=== PATIENT | male | born 1995 | race Caucasian/White ===

== ENCOUNTER 2020-10-21 21:11 | Emergency (ER) | payer BC, SELFPAY ==
[2020-10-21 21:20] VITALS: BP 131/73; PULSE 82; RESP 20; TEMP 36.9; O2SAT 98; BMI 24.3
--- NOTE | 2020-10-21 21:22 | XR_ITS ---
PROCEDURE: XR FOOT RT MIN 3V CLINICAL INDICATION: stepped on a nail Pain COMPARISON: No exams were available for comparison FINDINGS: No fracture or dislocation. No lytic or blastic change. There is normal mineralization. The joint spaces are well-preserved. No significant degenerative/arthritic changes. No erosive changes evident. Other findings:No radiopaque foreign body apparent IMPRESSION: No acute findings. Dictated by: Nate Carrington MD 10/22/2020 05:21 Naet Carrington MD in [place] 10/22/2020 05:21
--- NOTE | 2020-10-21 21:31 | HMH.EDWNDL ---
ED Disposition Clinical Impression: Puncture wound Disposition: Home, Self-Care Condition on Discharge: Good Instructions: DI for Puncture Wound Additional Instructions: use meds and call podiatry in am Prescriptions: clindamycin HCL [Clindamycin HCl] 300 mg PO TID #30 cap Transmission Status: Pending to [facility] cephALEXin [Keflex 500mg Cap] 500 mg PO TID #30 cap Transmission Status: Pending to [facility] Referrals: PCP,No [Non-Staff] - Deneen Leahy DPM [Staff Physician] - - Critical Care Critical Care Time: No Attestation: On 10/21/20, the high probability of a clinically significant, sudden or life threatening deterioration of the following system(s) required my full and direct attention, intervention and personal management. The time I documented below is in addition to time spent performing reported procedures but includes the following listed in this critical care notation. Medical Decision Making - Medical Records Medical records reviewed: Yes: I reviewed the patient's medical records. - Florencio Inquiry Pt receiving controlled substance: No Vital Signs: 10/21/20 21:20 Temperature 98.4 F Temperature Source Oral Pulse Rate [Right Brachial] 82 Respiratory Rate 20 Blood Pressure [Right Arm] 131/73 Blood Pressure Mean [Right Arm] 92 Blood Pressure Source [Right Arm] Automatic Cuff Blood Pressure Position [Right Arm] Sitting 02 Sat by Pulse Oximetry 98 Oxygen Delivery Method Room Air - Lab Data Lab results reviewed: Yes: I reviewed the patient's lab results. Orders (Tests/Meds): ED MEDICATIONS Discontinued Medications Generic Name Dose Route Start Last Admin Trade Name Freq PRN Reason Stop Dose Admin Tetanus/Diphtheria Toxoids 0.5 ml 10/21/20 21:22 10/21/20 21:50 Tetanus-Diphth Toxoid, Adult 0.5ml Syr IM 10/21/20 21:23 0.5 ml .ONCE ONE Administration ORDERS Category Date Time Status Foot XR right minimum 3 views [XR foot RT min 3V] Stat Exams 10/21/20 21:22 Taken - Radiology Data #1 Image(s): Foot/Toes Image Reviewed: Yes I reviewed the patient's radiology image Preliminary Findings: Normal/NAD Wound/Laceration HPI - General Chief Complaint: Wound/Laceration Stated Complaint: ao 10/21 1300 STEP ON NAIL Time Seen by Provider: 10/21/20 21:30 Mode of Arrival: Ambulatory Source of Information: Patient, Medical Record Limitations: No Limitations Description of Symptoms (Recalled from ER Triage Doc. by RN): PATIENT REPORTS THAT HE WAS AT WORK AND STEPPED ON A NAIL WITH RIGHT GREAT TOE WITH SHOE AND SOCK ON. HE STATES HE KEPT WORKING, HOWEVER WHEN HE GOT HOME HE TOOK HIS BOOT OFF AND TOE BEGAN SWELLING. PATIENT STATES IT IS PAINFUL, SWELLING AND REDNESS NOTED - History of Present Illness HPI narrative: stepped on nail at 1300 through boot and now with pain and swelling - no other c/o Onset (ago): hour(s) Extremity Location: Right: foot Place: home Patient tetanus UTD: No Context: other (stepped on nail ) Associated symptoms: pain - Related Data Previous Rx's Medication Instructions Recorded cephALEXin [Keflex 500mg Cap] 500 mg PO TID #30 cap 10/21/20 clindamycin HCL [Clindamycin HCl] 300 mg PO TID #30 cap 10/21/20 Allergies Allergy/AdvReac Type Severity Reaction Status Date / Time No Known Allergies Allergy Verified 10/21/20 21:28 [facility] History - Hepatitis A Screen Drug use history?: No High risk sexual behaviors?: No History of sexually transmitted infection?: No Currently employed?: No Childcare worker?: No Do you have indoor plumbing?: Yes Do you have electricity?: Yes Attestation statement:: This patient has been screened for Hepatitis A risk factors. I have reviewed the patient's past medical history: Yes - Social History Alcohol Intake: never Occupational Status: employed ROS Obtained: Yes All systems reviewed & no additional complaints - Constitutional Constitutional: Denies fever(
[2020-10-21 22:16] VITALS: BP 131/73; PULSE 82; RESP 20; TEMP 36.9; O2SAT 98
== END 2020-10-21 22:28 | disposition home or self-care (01) ==
PROVIDERS: Emergency Provider Emergency Medicine; PCP Nurse Practitioner Family
DX: S91.131A Puncture wound without foreign body of right great toe without damage to nail, initial encounter (principal); W45.0XXA Nail entering through skin, initial encounter; Y92.69 Other specified industrial and construction area as the place of occurrence of the external cause; Y99.0 Civilian activity done for income or pay; Z23 Encounter for immunization
CPT/HCPCS: 73630; 90471; 90714; 99282

== ENCOUNTER 2020-10-26 10:51 | Emergency (ER) | payer BC, SELFPAY ==
[2020-10-26 11:07] VITALS: BP 161/96; PULSE 89; RESP 19; TEMP 37; O2SAT 98; BMI 26.6
--- NOTE | 2020-10-26 11:28 | HMH.EDUTC ---
[facility] [place] Disposition Clinical Impression: Toe injury Qualifiers: Encounter type: initial encounter Laterality: right Qualified Code(s): S99.921A - Unspecified injury of right foot, initial encounter Disposition: Home, Self-Care Condition on Discharge: Good Instructions: DI for Puncture Wound, Toe Sprain Additional Instructions: Continue taking antibiotics as prescribed FOllow up with Family Doctor if no improvement or any worsening of symptoms Return if needed Make sure to eat prior to taking antibotics to help with stomach upset Straight to ER if any life threatening symptoms FOllow up with Dr Leahy Referrals: Hermelinda Sweeney [Primary Care Provider] - As needed Deneen Leahy DPM [Staff Physician] - Forms: Work/School Release Time of Disposition: 12:14 Medical Decision Making - Florencio Inquiry Pt receiving controlled substance: No Florencio was queried for this patient: No Vital Signs: 10/26/20 11:07 Temperature 98.6 F Temperature Source Oral Pulse Rate [Radial] 89 Respiratory Rate 19 Blood Pressure [Right Arm] 161/96 H Blood Pressure Mean [Right Arm] 117 Blood Pressure Source [Right Arm] Automatic Cuff Blood Pressure Position [Right Arm] Sitting 02 Sat by Pulse Oximetry 98 Oxygen Delivery Method Room Air Orders (Tests/Meds): ORDERS Category Date Time Status XR foot RT min 3V Stat Exams 10/26/20 11:29 Taken - Radiology Data #1 Image(s): Foot/Toes Image Reviewed: Yes I reviewed the patient's radiology image Preliminary Findings: No Fracture Seen [facility] [place] HPI - General Stated complaint: ao 10/21 nail injury right foot on antibotics swel Time Seen by Provider: 10/26/20 11:29 Mode of Arrival: Ambulatory Source of Information: Patient Limitations: No Limitations Description of Symptoms (Recalled from Triage Doc. by RN): stepped on a nail on wednesday, right foot. HEENT Symptoms (Recalled from RN notes): No Resp Symptoms (Recalled from RN notes): No Skin Symptoms (Recalled from RN notes): Yes MS Symptoms (Recalled from RN notes): No Functional Status (Recalled from RN notes): wnl - History of Present Illness Provider Complaint: Patient states that he was seen in ER on Wednesday after he stepped on a nail and was placed on antibitotics States that his right great toe was already sore and was swelling on and off States that last night he was getting into bed and slipped and hit his right great toe on something and felt a pop states that ever since he has had swelling and bruising and worried that he may have broken his toe - Related Data Previous Rx's Medication Instructions Recorded cephALEXin [Keflex 500mg Cap] 500 mg PO TID #30 cap 10/21/20 clindamycin HCL [Clindamycin HCl] 300 mg PO TID #30 cap 10/21/20 Allergies Allergy/AdvReac Type Severity Reaction Status Date / Time No Known Allergies Allergy Verified 10/21/20 21:28 - Worker's Comp Is this a Worker's Comp case?: No [facility] History - Hepatitis A Screen Drug use history?: No High risk sexual behaviors?: No History of sexually transmitted infection?: No Currently employed?: No Childcare worker?: No Do you have indoor plumbing?: Yes Do you have electricity?: Yes Attestation statement:: This patient has been screened for Hepatitis A risk factors. I have reviewed the patient's past medical history: Yes - Social History Alcohol Intake: never Occupational Status: other ROS Obtained: Yes All systems reviewed & no additional complaints, Yes Systems reviewed as appropriate & no additional complaints - Constitutional Constitutional: Reports system reviewed and no additional complaints, except as docu, Denies body ache, Denies chills, Denies fever(s) Physical Exam - General General appearance: alert, in no apparent distress - Respiratory Respiratory exam: Present: normal lung sounds bilaterally. Absent: respiratory distress - Cardiovascular Cardiovascular exam: Present: regular rate - Abdominal Exam Abdominal exam:
--- NOTE | 2020-10-26 11:29 | XR_ITS ---
PROCEDURE: XR FOOT RT MIN 3V CLINICAL INDICATION: hit great toe last night COMPARISON: No exams were available for comparison FINDINGS: No fracture or dislocation. No lytic or blastic change. There is normal mineralization. The joint spaces are well-preserved. No significant degenerative/arthritic changes. No erosive changes evident. There is mild generalized soft tissue swelling around the distal phalanx great toe. There are no foreign bodies seen.. IMPRESSION: Mild swelling of the great toe, no acute fracture seen Dictated by: Dr. Qamar Mcclure MD 10/26/2020 13:16 Dr. Qamar Mcclure MD in [place] 10/26/2020 13:16
[2020-10-26 12:21] VITALS: BP 161/96; PULSE 89; RESP 19; TEMP 37; O2SAT 98
== END 2020-10-26 12:22 | disposition home or self-care (01) ==
PROVIDERS: Emergency Provider Nurse Practitioner; PCP Nurse Practitioner Family
DX: S91.131A Puncture wound without foreign body of right great toe without damage to nail, initial encounter (principal); W22.8XXA Striking against or struck by other objects, initial encounter
CPT/HCPCS: 73630; 99201

== ENCOUNTER 2021-12-21 19:55 | Emergency (ER) | payer BC, SELFPAY ==
[2021-12-21 20:05] VITALS: BP 141/91; PULSE 102; RESP 18; TEMP 36.9; O2SAT 98; BMI 24.0
--- NOTE | 2021-12-21 20:34 | HMH.EDUTC ---
[facility] [place] Disposition Clinical Impression: Exposure to COVID-19 virus Disposition: Home, Self-Care Condition on Discharge: Good Instructions: DI for COVID-19 (Suspected or Confirmed ), Preventing the Spread of Coronavirus Discharge Instructions Additional Instructions: *Monitor Temp, Over the counter Motrin or Tylenol as directed/as needed Tylenol every 4 hours and Motrin every 6 hours (as long as your family doctor has told you that you can take it) for fever or pain. and straight to ER if unable to lower temp less than 101.0 after medication given *Warm salt water gargles may help to soothe the throat *Throat Lozenges *Warm fluids like tea with honey may help to soothe the throat *Sleep elevated *Humidifier/Vaporizer Follow up IMMEDIATELY for new or worsening symptoms or no Noticeable improvement over the next 48-72 hours. 911 for difficulty breathing or swallowing You were tested for today for COVID19 your test result should be back in the next 24-72 hours, you may check your results on the [facility] if you have trouble logging on you may call support If you are positive someone from the hospital will be calling you Make sure to take your Vitamins Vit. C Vit D and Zinc if you can take them Referrals: Provider,Referral, MD [Primary Care Provider] - As needed Forms: Work/School Release Medical Decision Making - Florencio Inquiry Pt receiving controlled substance: No Florencio was queried for this patient: No Vital Signs: 12/21/21 20:05 Temperature 98.4 F Temperature Source Oral Pulse Rate [Right Brachial] 102 H Respiratory Rate 18 Blood Pressure [Right Arm] 141/91 H Blood Pressure Mean [Right Arm] 107 Blood Pressure Source [Right Arm] Automatic Cuff Blood Pressure Position [Right Arm] Sitting 02 Sat by Pulse Oximetry 98 Oxygen Delivery Method Room Air Orders (Tests/Meds): ORDERS Category Date Time Status Covid-19 Nasal PCR ([facility]) Routine Lab 12/21/21 20:06 Received [facility] [place] HPI - General Stated complaint: covid test Time Seen by Provider: 12/21/21 20:34 Mode of Arrival: Ambulatory Source of Information: Patient Limitations: No Limitations Description of Symptoms (Recalled from Triage Doc. by RN): COVID TEST D/T EXPOSURE. C/O HEADACHE, BODY ACHES, RUNNY NOSE X 4 DAYS HEENT Symptoms (Recalled from RN notes): Yes Resp Symptoms (Recalled from RN notes): No Skin Symptoms (Recalled from RN notes): No MS Symptoms (Recalled from RN notes): No Functional Status (Recalled from RN notes): WNL - History of Present Illness Provider Complaint: Patient states that his girlfriend recently tested positive for COVID and he hasnt felt well for about 4 days with body aches, chills and runny nose States that he came in tonight wanting to get tested for COVID - Related Data Previous Rx's Medication Instructions Recorded cephALEXin [Keflex 500mg Cap] 500 mg PO TID #30 cap 10/21/20 clindamycin HCL [Clindamycin HCl] 300 mg PO TID #30 cap 10/21/20 Allergies Allergy/AdvReac Type Severity Reaction Status Date / Time No Known Allergies Allergy Verified 10/21/20 21:28 - Worker's Comp Is this a Worker's Comp case?: No [facility] History - Hepatitis A Screen Drug use history?: No High risk sexual behaviors?: No History of sexually transmitted infection?: No Currently employed?: No Childcare worker?: No Do you have indoor plumbing?: Yes Do you have electricity?: Yes Attestation statement:: This patient has been screened for Hepatitis A risk factors. I have reviewed the patient's past medical history: Yes - Social History Alcohol Intake: never Occupational Status: other ROS Obtained: Yes All systems reviewed & no additional complaints, Yes Systems reviewed as appropriate & no additional complaints - Constitutional Constitutional: Reports system reviewed and no additional complaints, except as docu, Reports body ache, Reports chills, Reports fever(s), Reports headache(s) - ENT Ears, Nose, Mouth,
[2021-12-21 20:42] VITALS: BP 141/91; PULSE 102; RESP 18; TEMP 36.9; O2SAT 98
== END 2021-12-21 20:45 | disposition home or self-care (01) ==
PROVIDERS: Emergency Provider Nurse Practitioner
DX: U07.1 COVID-19 (principal)
CPT/HCPCS: 99202; C9803; G0463; U0003; U0005

== ENCOUNTER 2025-02-05 13:50 | Outpatient (CLI) | payer OTHER, SELFPAY | END 2025-02-05 23:59 | disposition home or self-care (01) | LOC: LAB.DROPOF 02-07 11:51 | PROVIDERS: PCP Nurse Practitioner Family; Visit Provider Nurse Practitioner Family | DX: J02.9 Acute pharyngitis, unspecified (principal) | CPT/HCPCS: 87070; 87186 ==

== ENCOUNTER 2025-02-19 10:01 | Outpatient (CLI) | payer OTHER, SELFPAY ==
--- NOTE | 2025-02-19 10:03 | XR_ITS ---
FINAL REPORT TECHNIQUE: Chest PA & Lateral CLINICAL HISTORY: wheezing, soa x 2 weeks walking pneumonia COMPARISON: None FINDINGS: 2 views of the chest were performed. The heart size is normal. The mediastinum is within normal limits. There is a small airspace opacity in the inferior right upper lobe, consistent with pneumonia. There are no pleural effusions. There is no pneumothorax. The bony thorax appears intact. IMPRESSION: Small airspace opacity, inferior right upper lobe, consistent with pneumonia. Reviewed, Interpreted and Dictated by Leo Faulkner MD Transcribed by Nataliia Wilder Authenticated and [facility]
== END 2025-02-19 23:59 | disposition home or self-care (01) ==
LOC: RAD 10:02
PROVIDERS: PCP Family Medicine; Visit Provider Family Medicine
DX: R06.2 Wheezing (principal)
CPT/HCPCS: 71046